=== PATIENT | female | born 1995 | race Caucasian/White ===

== ENCOUNTER → 2021-12-01 08:42 | Outpatient (BNVA) | payer OTHER, SELFPAY | PROVIDERS: PCP Family Medicine; Visit Provider Family Medicine | DX: R00.1 Bradycardia, unspecified (principal); N92.6 Irregular menstruation, unspecified; B36.0 Pityriasis versicolor | CPT/HCPCS: 80053; 84443; 85025 ==

== ENCOUNTER → 2021-12-09 10:35 | Outpatient (BNVA) | payer OTHER, SELFPAY | PROVIDERS: PCP Family Medicine; Visit Provider Family Medicine | DX: N91.5 Oligomenorrhea, unspecified (principal); Z01.419 Encounter for gynecological examination (general) (routine) without abnormal findings; N92.6 Irregular menstruation, unspecified; Z12.4 Encounter for screening for malignant neoplasm of cervix | CPT/HCPCS: 88175 ==

== ENCOUNTER 2022-02-22 12:29 | Outpatient (CLI) | payer OTHER, SELFPAY ==
--- NOTE | 2022-02-22 13:00 | US_ITS ---
WS: [id number] Pelvic ultrasound, 02/22/2022 Clinical Data: oligomenorrhea, fam hx pcos Comparison: None. Findings: The uterus measures 9.7 cm x 2.8 cm x 4.1 cm. The endometrium is 0.3 cm. No intrauterine or abnormal intrauterine mass is seen. The cervical length is 3.2 cm. The left ovary measures 4.2 cm x 2.7 cm x 3.1 cm with follicular cysts. The right ovary measures 3.7 cm x 2.8 cm x 3.6 cm with follicular cysts . There is no fluid in the cul-de-sac US/US pelvic with transvaginal Impression: Multiple ovarian follicular cysts.
== END 2022-02-22 12:30 | disposition home or self-care (01) ==
PROVIDERS: PCP Family Medicine; Visit Provider Family Medicine
DX: N91.5 Oligomenorrhea, unspecified (principal); Z84.89 Family history of other specified conditions; N83.02 Follicular cyst of left ovary; N83.01 Follicular cyst of right ovary
CPT/HCPCS: 76830; 76856

== ENCOUNTER → 2022-04-28 10:20 | Outpatient (BNVA) | payer OTHER, SELFPAY | PROVIDERS: PCP Family Medicine; Visit Provider Obstetrics & Gynecology | DX: N92.6 Irregular menstruation, unspecified (principal) | CPT/HCPCS: 83036; 83525; 84443 ==

== ENCOUNTER → 2023-06-15 09:18 | Outpatient (BNVA) | payer BC, SELFPAY | PROVIDERS: PCP Family Medicine; Visit Provider Family Medicine | DX: E28.2 Polycystic ovarian syndrome (principal) | CPT/HCPCS: 82157; 82627; 82670; 83001; 83002; 83520; 83525; 84144; 84146; 84270; 84305; 84403 ==

== ENCOUNTER 2023-10-05 14:56 | Outpatient (CLI) | payer BC, SELFPAY ==
--- NOTE | 2023-10-05 15:29 | CT_ITS ---
WS: [id number] CT ABDOMEN PELVIS TECHNIQUE: Contrast-enhanced CT of the abdomen and pelvis with coronal and sagittal reformatted image s. CLINICAL INFORMATION: incarcerated ventral hernia COMPARISON: None. DLP: 305.[address] scans at [facility] use at least one of these dose optimization techniques: automated e xposure control; mA and/or kV adjustment per patient size (includes targeted exams where dose is matc hed to clinical indication); or iterative reconstruction. FINDINGS: Midline supraumbilical hernia with peripheral enhancing fluid collection measuring 3.5 x 1.7 cm. Slig ht surrounding skin thickening and induration. Tiny umbilical hernia neck which is difficult to visua lize. No herniated bowel. Findings suspicious for incarcerated and strangulated fat-containing hernia . Moderate pancolonic constipation. Urine distended bladder. Normal hepatic parenchymal enhancement. No rmal portal vein and splenic vein. Lung bases are well aerated. Mild fluid distention of the stomach. Normal spleen. Normal pancreatic parenchymal enhancement. Celiac and SMA are patent. Normal caliber abdominal aorta. Adrenal glands are normal. No hydronephrosis in either kidney. CT/CT abdomen pelvis w con* [id number] IMPRESSION: 1. Ventral midline supraumbilical hernia with peripheral enhancing fluid atten uation described above. Slight surrounding skin thickening and induration. Mani mmend correlation with area of pain. Findings suspicious for incarcerated and s trangulated hernia. 2. Hernia neck is tiny and difficult to visualize the intra-abdominal connecti on. 3. No definite evidence of herniated bowel. 4. Moderate pancolonic constipation. 5. No evidence of high-grade small or large bowel obstruction. 6. No other acute findings.
[2023-10-05] MEDS: iohexol 350 mg/mL 500 mL Btl (per mL) IV (15:58)
[2023-10-05] MEDS: iohexol 350 mg/mL 500 mL Btl (per mL) PO (15:58)
== END 2023-10-05 14:57 | disposition home or self-care (01) ==
LOC: RAD 14:57
PROVIDERS: PCP Family Medicine; Visit Provider Surgery
DX: K43.6 Other and unspecified ventral hernia with obstruction, without gangrene (principal); K59.00 Constipation, unspecified
CPT/HCPCS: 74177; Q9967

== ENCOUNTER 2023-10-15 05:47 | Day surgery (SDC) | payer BC, SELFPAY ==
[2023-10-15] VITALS (11 sets, daily range): BP systolic 100–136; BP diastolic 63–88; PULSE 42–82; RESP 14–18; TEMP 36.4–36.6; O2SAT 93–99; BMI 24.7
[2023-10-15 06:02] LABS: OR HCG Qualitative Urine Negative (Negative)
--- NOTE | 2023-10-15 06:04 | W.PM.OPSUD ---
Surgery/Procedure H&P Update DATE OF PROCEDURE: October 15, 2023 DATE H&P PERFORMED: 10/05/23 H&P UPDATE INFORMATION: I have reviewed H&P completed within last 30 days, I have examined patient prior to procedure, No changes to prior documentation and Changes to prior documentation as noted here PLANNED PROCEDURE: Operation Date: 10/15/23 07:00 Proposed Procedures p Laparoscopic Umbilical Hernia Repair w/ Mesh/ [place] 59160, K42.9(Not Applicable) - Mario Reynoso MD
[2023-10-15] MEDS: sodium chloride 0.9% 1,000 ML 30 ML IV (06:24)
[2023-10-15] MEDS: ceFAZolin 2,000 mg SDV 2000 MG IVP (06:59)
--- NOTE | 2023-10-15 07:08 | ANES.PREANE2 ---
Pre-Anesthetic Assessment Height/Weight: Height 1.68 m Weight 69.4 kg Temp Pulse Resp BP Pulse Ox O2 Del Method 97.7 F 42 L 16 100/65 99 Room Air 10/15/23 06:11 10/15/23 06:11 10/15/23 06:11 10/15/23 06:11 10/15/23 06:11 10/15/23 06:11 Operation Date: 10/15/23 07:00 Proposed Procedures p Laparoscopic Umbilical Hernia Repair w/ Mesh/ [place] open 32255, K42.9(Not Applicable) - Mario Reynoso MD Familial anesthetic complications: None Was Beta Devang taken within 24 hours: N/A Was Clonidine taken within 24 hours: N/A Last intake: Intake Last Liquid Date 10/14/23 Last Liquid Time 19:30 Last Solid Date 10/14/23 Last Solid Time 19:30 Social No alcohol and No tobacco Exam alert, oriented x 3, clear to auscultation bilaterally and regular rate & rhythm Airway Mallampati: Class I Dentition: full CV/HEM Arrythmia (bradycardia) Metabolic PCOS Anesthetic Plan ASA status: 2 Anesthesia: General Other: States she does not take spironolactone anymore now that her acne has cleared up post OCP usage Risk of > 500 ml blood loss (7ml/kg in children): No Medications/Allergies Home Medications Medication Instructions Recorded Confirmed Last Taken Type spironolactone 50 mg tablet 50 mg PO DAILY #30 tabs 06/30/22 10/15/23 10/14/23 Rx buspirone 7.5 mg tablet 7.5 mg PO BID #60 tabs 06/15/23 10/15/23 10/14/23 Rx polyethylene glycol 3350 17 17 g PO BID #238 grams 10/05/23 10/15/23 10/14/23 Rx gram/dose oral powder (Miralax) Allergies Allergy/AdvReac Type Severity Reaction Status Date / Time No Known Allergies Allergy Verified 10/10/23 15:37 Current Medications Generic Name Dose Route Start Last Admin Trade Name Freq PRN Reason Stop Dose Admin Sodium Chloride 1,000 mls @ 30 mls/hr 10/15/23 06:00 10/15/23 06:24 Sodium Chloride 0.9% IV 10/16/23 05:59 30 mls/hr .Q24H KAI Administration PFSH Anesthesia Medical History Hypomenorrhea/oligomenorrhea Umbilical hernia Migraine with aura Irregular menstrual cycle Bradycardia Surgical History History of incision and drainage brown recluse bite of lower back Family History Family/Other Diabetes Uncles Grandfather Heart disease Denies family history of Colon cancer Ovarian cancer Breast cancer Uterine cancer Thyroid disease Stroke Social History Smoking and tobacco/nicotine status: never used tobacco/nicotine Substance/Drug Use: never Data Anesthesia Cardiac Studies: No Data to Display
[2023-10-15] MEDS: BUPivacaine 0.25% INJ 10 mL INJECTION (08:00)
[2023-10-15] MEDS: lidocaine-epi 1% 20 mL INJ INJECTION (08:00)
--- NOTE | 2023-10-15 08:24 | P.OP_ITS ---
Operative Report Date of procedure: October 15, 2023 Pre-op diagnosis: Incarcerated umbilical hernia Post-op diagnosis: Same Post-op findings: There was a incarcerated umbilical hernia containing fat measuring 0.5 cm. Procedure done: Open umbilical hernia repair, primary Implants: None Specimens removed/disposition: Hernia sac and contents Surgeon: Mario Reynoso MD Insurance Loss Adjuster: JOSE OR Staff Estimated blood loss: 5 Complications: none Brief History: 8-year-old female with history umbilical hernia who presented with acute worsening of symptoms, CT scan show evidence of a incarcerated umbilical hernia with possible strangulated fat. Proceed to the OR for open repair Procedure: Patient was brought into the OR, general anesthesia was given. The abdomen was prepped and draped in the usual sterile fashion. Timeout was conducted. Infraumbilical semilunar incision was made, the incision was deepened to subcutaneous tissues using electrocautery. With blunt dissection and electrocautery I deepened the incision to the level of the fascia, the incarcerated hernia was noted at this level, I carefully dissected around the hernia without entering the hernia sac. I then used blunt dissection to circumferentially dissect the umbilical stalk and once it was completely dissected from the tissue I proceeded to transect the umbilical stalk taking careful consideration of not injuring the hernia sac or the skin. I circumferentially dissected the hernia, the hernia appeared to contain only fat and fluid, the hole in the fascia was less than 1 cm and therefore it was unable to reduce the hernia into the preperitoneal space, therefore I decided to ligate the sac and contents of the level of the fascia. I used a 2-0 Vicryl tie for this and I transected the sac and contents which were then sent for pathology. The wound was irrigated and hemostasis was achieved. The residual defect in the fascia was less than 0.5 cm, therefore I proceeded with primary repair with a #0 Prolene [id number] suture. I will do careful consideration of elevating the anterior abdominal wall fascia to prevent injuring of any of the intra-abdom inal contents. Once the hernia was close no residual defect was noted. I then proceeded to tack the umbilicus to the fascia using #3-0 Vicryl. The wound was then closed in layers using #3-0 Vicryl for the deep tissue, subcutaneous tissue and #4 Monocryl for the skin. Dermabond was applied, after this a compressive dressing was applied. The patient tolerated well the procedure, at the end of t he procedure all counts were correct, the patient was extubated and transferred to the PACU in stable condition
[2023-10-15] MEDS: HYDROmorphone 1 mg/mL INJ 1 mL 0.5 MG IVP (08:34)
--- NOTE | 2023-10-15 09:25 | ANE.PACU2 ---
Inpatient post-anesthesia follow up: Airway intact: Yes Vital signs: Temperature 97.6 F Pulse Rate 57 Respiratory Rate 16 Blood Pressure 114/75 Pulse Oximetry 97 Oxygen Delivery Me thod Room Air Oxygen Flow Rate Fraction of Inspir ed Oxygen Hydration adequate: Yes Nausea and vomiting: No Pain level: 1 Mental status: Baseline
== END 2023-10-15 09:29 | disposition home or self-care (01) ==
PROVIDERS: Anesthesiology; PCP Family Medicine; Visit Provider Surgery
PROC: 0WQF4ZZ Repair Abdominal Wall, Percutaneous Endoscopic Approach (ICD-10-PCS; CPT 49592; principal; 2023-10-15 07:00)
DX: K42.1 Umbilical hernia with gangrene (principal); E28.2 Polycystic ovarian syndrome
CPT/HCPCS: 49592; 81025; 88302; J0690; J1100; J1170; J1885; J2250; J2405; J2704; J3010; J3490; J7030